=== PATIENT | female | born 1990 | race Two or more races ===

== ENCOUNTER 2019-07-03 21:46 | Emergency (ER) | payer OTHER ==
[~2019-07-03] VITALS: Ht 165.1 cm; Wt 61.2 kg
[2019-07-03] MEDS ORDERED: IV NORMAL SALINE 1000 ML BAG IV ONE (22:15)
[2019-07-03] MEDS ORDERED: ONDANSETRON 4 MG/2 ML VIAL IV ONE (22:15)
[2019-07-03] MEDS ORDERED: HYDROMORPHONE 1 MG/1 ML DISP.SYRIN IV ONE (22:15)
[2019-07-03] MEDS ORDERED: HYDROMORPHONE 1 MG/1 ML DISP.SYRIN ONE ×2 (22:18→23:58)
[2019-07-03] MEDS ORDERED: ONDANSETRON 4 MG/2 ML VIAL ONE ×2 (22:18→23:58)
[2019-07-04] MEDS ORDERED: ONDANSETRON 4 MG/2 ML VIAL IV ONE
[2019-07-04] MEDS ORDERED: HYDROMORPHONE 1 MG/1 ML DISP.SYRIN IV ONE
--- NOTE | 2019-07-04 00:30 | NUR ---
DC IV SALINE LOCK FROM R AC, DRESSED
--- NOTE | 2019-07-04 00:32 | NUR ---
ABLE TO TOLERATE PN MEDS ORDRED ABLE TO TOLERATE ORTHO MEDS ORDRED PN 0/10 IF NOT MOVING PN AT 8/10 UPON MOVING OF R ANKLE
--- NOTE | 2019-07-04 00:57 | NUR ---
ABLE TO TOLERATE GAIT TRAINING Patient discharged to home in stable conditon. Written and verbal after care instructions given. Patient verbalizes understanding of instructions. AMBULATORY W/ ANTALGIC GAIT TOLERATBLE PN ALL BELONGINGS W/ PT
[2019-07-04 01:00] VITALS: BP 110/86
== END 2019-07-04 01:01 | disposition home or self-care (01) ==
LOC: ER 21:46
DX: S16.1XXA Strain of muscle, fascia and tendon at neck level, initial encounter (principal); S93.401A Sprain of unspecified ligament of right ankle, initial encounter; J45.909 Unspecified asthma, uncomplicated; R10.2 Pelvic and perineal pain; M25.531 Pain in right wrist; Y09 Assault by unspecified means
CPT/HCPCS: 36415; 72040; 72170; 73110; 73610; 84702; 96374; 96375; 96376; 99284; J1170 ×2; J2405 ×2; A4663; J7030